=== PATIENT | female | born 1990 | race African-American/Black ===

== ENCOUNTER 2018-06-20 21:50 | Inpatient (IN) | payer OTHER ==
[~2018-06-20] VITALS: Ht 172.7 cm; Wt 103.9 kg
[~2018-06-20 21:50] MED LIST: ACET-704 PO; PROM25TA10 PO; SULF1TAB24 PO
[2018-06-20] MEDS ORDERED: ACETAMINOPHEN 325 MG TABLET. PO PRN (22:00)
[2018-06-20] MEDS ORDERED: IV RINGERS,LACTATED 1000ML 1,000 ML IV SCH (22:00)
[2018-06-20 22:13] LABS: BILIRUBIN,URINE NEGATIVE (NEG); CLARITY,URINE CLEAR; COLOR,URINE YELLOW; NITRITE,URINE NEGATIVE (NEG); PROTEIN,URINE NEGATIVE (NEG-TRACE); UROBILINOGEN,URINE 0.2 mg/dL (0.2 mg/dL)
[2018-06-20] MEDS ORDERED: 0.9 % SODIUM CHLORIDE 10 ML DISP.SYRIN. IV PRN (22:15)
[2018-06-20] MEDS ORDERED: ONDANSETRON PF 4 MG/2 ML VIAL. IV PRN (22:15)
[2018-06-20] MEDS ORDERED: TERBUTALINE 1 MG/ML VIAL. SQ PRN (22:15)
[2018-06-20] MEDS ORDERED: IBUPROFEN 400 MG TABLET. PO PRN (22:15)
[2018-06-20] MEDS ORDERED: LIDOCAINE 1% PF 30 ML VIAL. INJ PRN (22:15)
[2018-06-20] MEDS ORDERED: fentaNYL PF VIAL 100 MCG/2 ML VIAL IV PRN ×2 (22:15)
[2018-06-20] MEDS ORDERED: NALBUPHINE 10 MG/ML AMPUL. IV PRN (22:15)
[2018-06-20] MEDS ORDERED: OXYTOCIN 30 UNIT/500 ML PREMIX 500 ML IV PRN ×2 (22:15)
[2018-06-20] MEDS: IV RINGERS,LACTATED 1000ML 1,000 ML IV SCH (22:15)
[2018-06-20 22:20] LABS: BARBITURATES NEG (NEG); BENZODIAZEPINES NEG (NEG); CANNABINOIDS NEG (NEG); COCAINE NEG (NEG); METHADONE NEG (NEG); OPIATES NEG (NEG); PHENCYCLIDINE NEG (NEG)
[2018-06-20 22:26] LABS: AMPHETAMINE/METHAMPHETAMINE NEG (NEG)
[2018-06-20 22:27] LABS: BACTERIA,URINE FEW /HPF (0-FEW); RBC,URINE 0 /HPF (0-2); SQUAMOUS EPITHELIAL CELL,UR MANY /LPF; TRICHOMONAS,URINE PRESENT
[2018-06-20] MEDS ORDERED: PENICILLIN G K 5,000,000 UNIT in IV DEXTROSE 5% 100ML 100 ML IV ONE (22:30)
[2018-06-20 22:49] LABS: BASO % 0 % (0-3); EOS % 0 % (0-3); HEMATOCRIT 34.4 % (36.0-47.0); HEMOGLOBIN 11.6 g/dL (12.0-15.5); LYMPH # 2.3 x10^3/uL (1.0-4.8); LYMPH % 22 % (24-48); MEAN CORPUSCULAR HEMOGLOBIN 31 pg (25-35); MEAN CORPUSCULAR HGB CONC 34 g/dL (31-37); MEAN CORPUSCULAR VOLUME 91 fL (79-100); MONO # 0.6 x10^3/uL (0.0-1.1); MONO % 6 % (0-9); NEUT # 7.3 x10^3uL (1.8-7.7); NEUT % 72 % (31-73); PLATELET COUNT 218 x10^3/uL (140-400); RED CELL DISTRIBUTION WIDTH 13.5 % (11.5-14.5); WHITE BLOOD COUNT 10.2 x10^3/uL (4.0-11.0)
--- NOTE | 2018-06-20 23:53 | PDOC1 ---
OB - History Hx of Present Care: Good Care Ultrasounds: Normal mid trimester US Obstetrical Complications: None Medical Complications: None Other Concerns: Pt. seen in [facility] clinic at . Past Family/Social History * Past Medical, Surgical, Family and Obstetric Histories reviewed from chart. Blood Type: Unknown Rubella: Unknown RPR/VDRL: Unknown GBS Status: Unknown HBsAG: Unknown OB - Chief Complaint & HPI Date of Admission: Date of Admission: Jun 20, 2018 at 21:50 Chief Complaint/History : 2 Para: 1 EGA: 40 Reason for admission: active labor Admission Nurse Assessment Rev: Yes OB - Admission Exam Physical Exam Vitals: VS - Last 72 Hours, by Label Date Time Temp Pulse Resp B/P (MAP) Pulse Ox O2 Delivery O2 Flow Rate FiO2 06/20/18 22:34 18 Room Air HEENT: Normal Heart: Regular Rate Lungs: Clear Abdomen: Gravid, Non tender, Soft Extremities: Edema Reflexes: Normal Cervical Dilatation: 6cm Effacement: 100% Station: 0 Membranes: Intact Heart Rate: Normal Accelerations: Accelerations Present Decelerations: No decelerations Contractions on Admission: < 5 Minutes Apart Intensity: Firm Text A: 40 wks IUP care at Trichomonas GBS positive P: Admit for active labor. Start Pen G prophylaxis. Will treat Trichomonas after delivery. MARY HERMAN Jr, MD Jun 20, 2018 23:53
--- NOTE | 2018-06-20 23:55 | PDOC ---
VAGINAL DELIVERY DATE DATE: 06/20/18 TIME: 23:54 : 2 Para: 2 EGA: 40 VAGINAL DELIVERY: VTX VACCUM ASSISTED: No PLACENTA: Spontaneous 8/9 SEX: Male WEIGHT Weight [ 7 lbs. 12 oz ] Nuchal Cord: No Amniotic Fluid: Clear PAIN: Natural EPISIOTOMY: No EXTENSION: Yes (1st degree midline laceration; hemostatic) REPAIRED WITH hemostatic EBL 300 ml COMPLICATIONS none CONDITION pt. stable Signs of Intrauterine Infectio: None Shoulder Dystocia: No MARY HERMAN Jr, MD Jun 20, 2018 23:55
[2018-06-21] MEDS ORDERED: IBUPROFEN 400 MG TABLET. PO PRN
[2018-06-21 00:18] VITALS: BP 132/66
[2018-06-21] MEDS ORDERED: metroNIDAZOLE 500 MG TABLET PO ONE ×2 (01:00)
[2018-06-21] MEDS ORDERED: PENICILLIN G K 2,500,000 UNIT in IV DEXTROSE 5% 50 ML IV SCH (02:30)
[2018-06-21 05:25] VITALS: BP 132/69
[2018-06-21 05:35] LABS: BASO % 0 % (0-3); EOS % 0 % (0-3); HEMATOCRIT 31.4 % (36.0-47.0); HEMOGLOBIN 10.9 g/dL (12.0-15.5); LYMPH # 1.1 x10^3/uL (1.0-4.8); LYMPH % 9 % (24-48); MEAN CORPUSCULAR HEMOGLOBIN 32 pg (25-35); MEAN CORPUSCULAR HGB CONC 35 g/dL (31-37); MEAN CORPUSCULAR VOLUME 91 fL (79-100); MONO # 0.6 x10^3/uL (0.0-1.1); MONO % 5 % (0-9); NEUT # 10.8 x10^3uL (1.8-7.7); NEUT % 86 % (31-73); PLATELET COUNT 186 x10^3/uL (140-400); RED BLOOD COUNT 3.46 x10^6/uL (3.50-5.40); RED CELL DISTRIBUTION WIDTH 13.7 % (11.5-14.5); WHITE BLOOD COUNT 12.6 x10^3/uL (4.0-11.0)
[2018-06-21] MEDS ORDERED: 0.9 % SODIUM CHLORIDE 10 ML DISP.SYRIN. IV PRN ×2 (05:45)
[2018-06-21] MEDS ORDERED: oxyCODONE/APAP 5/325 1 TAB TABLET PO PRN ×2 (05:45)
[2018-06-21] MEDS ORDERED: DOCUSATE SODIUM 100 MG CAPSULE. PO PRN ×2 (05:45)
[2018-06-21] MEDS ORDERED: MAG HYDROX/ALUMINUM HYD/SIMETH 30 ML ORAL.SUSP PO PRN ×2 (05:45)
[2018-06-21] MEDS ORDERED: diphenhydrAMINE HCL 25 MG CAPSULE PO PRN ×2 (05:45)
[2018-06-21] MEDS ORDERED: ZOLPIDEM 5 MG TABLET. PO PRN ×2 (05:45)
[2018-06-21] MEDS ORDERED: HYDROCORTISONE 1% TOPICAL OINTMENT 30GM TUBE. TP PRN ×2 (05:45)
[2018-06-21] MEDS ORDERED: PHENYLEPH/MINERAL OIL/PETROLAT RECTAL OINTMENT 28GM TUBE. RC PRN ×2 (05:45)
[2018-06-21] MEDS ORDERED: ACETAMINOPHEN 325 MG TABLET. PO PRN ×2 (05:45)
[2018-06-21] MEDS ORDERED: BENZOCAINE 20% TOPICAL AEROSOL SPRAY 57GM CAN. TP PRN ×2 (05:45)
[2018-06-21] MEDS ORDERED: MAGNESIUM HYDROXIDE 2,400 MG/30 ML ORAL.SUSP. PO PRN ×2 (05:45)
[2018-06-21] MEDS ORDERED: MMR per PROTOCOL. MC PRN ×2 (05:45)
[2018-06-21] MEDS ORDERED: OXYTOCIN 30 UNIT/500 ML PREMIX 500 ML IV PRN ×2 (05:45)
[2018-06-21] MEDS ORDERED: SIMETHICONE 80 MG TAB.CHEW PO PRN ×2 (05:45)
[2018-06-21] MEDS: IV RINGERS,LACTATED 1000ML 1,000 ML IV SCH ×3 (06:15→22:15)
[2018-06-21 08:00] VITALS: BP 139/77
[2018-06-21] MEDS ORDERED: FERROUS SULFATE 325 MG TABLET. PO SCH (08:00)
[2018-06-21 08:01] LABS: % BANDS 8 % (0-9); % LYMPHS 7 % (24-48); % MONOS 4 % (0-10); % SEGS 81 % (35-66); PLT ESTIMATE ADEQUATE (ADEQUATE)
--- NOTE | 2018-06-21 09:52 | PDOC ---
OB Progress Note Date of Service 06/21/18 Time of Evaluation 0950 Notes PT. feeling well. No complaints. Pt. completed Flagyl treatment for Trichomonas and informed her partner. Lab Laboratory Tests Test 06/20/18 22:07 06/20/18 22:20 06/21/18 04:50 Urine Collection Type Unknown Urine Color Yellow Urine Clarity Clear Urine pH 6.0 Urine Specific [place] 1.020 Urine Protein Negative mg/dL (NEG-TRACE) Urine Glucose (UA) Negative mg/dL (NEG) Urine Ketones (Stick) Negative mg/dL (NEG) Urine Blood Trace (NEG) Urine Nitrite Negative (NEG) Urine Bilirubin Negative (NEG) Urine Urobilinogen Dipstick 0.2 mg/dL (0.2 mg/dL) Urine Leukocyte Esterase Large (NEG) Urine RBC 0 /HPF (0-2) Urine WBC 5-10 /HPF (0-4) Urine Squamous Epithelial Cells Many /LPF Urine Bacteria Few /HPF (0-FEW) Urine Trichomonas Present Urine Opiates Screen Neg (NEG) Urine Methadone Screen Neg (NEG) Urine Barbiturates Neg (NEG) Urine Phencyclidine Screen Neg (NEG) Urine Amphetamine/Methamphetamine Neg (NEG) Urine Benzodiazepines Screen Neg (NEG) Urine Cocaine Screen Neg (NEG) Urine Cannabinoids Screen Neg (NEG) Urine Ethyl Alcohol Neg (NEG) White Blood Count 10.2 x10^3/uL (4.0-11.0) 12.6 x10^3/uL (4.0-11.0) Red Blood Count 3.80 x10^6/uL (3.50-5.40) 3.46 x10^6/uL (3.50-5.40) Hemoglobin 11.6 g/dL (12.0-15.5) 10.9 g/dL (12.0-15.5) Hematocrit 34.4 % (36.0-47.0) 31.4 % (36.0-47.0) Mean Corpuscular Volume 91 fL (79-100) 91 fL (79-100) Mean Corpuscular Hemoglobin 31 pg (25-35) 32 pg (25-35) Mean Corpuscular Hemoglobin Concent 34 g/dL (31-37) 35 g/dL (31-37) Red Cell Distribution Width 13.5 % (11.5-14.5) 13.7 % (11.5-14.5) Platelet Count 218 x10^3/uL (140-400) 186 x10^3/uL (140-400) Neutrophils (%) (Auto) 72 % (31-73) 86 % (31-73) Lymphocytes (%) (Auto) 22 % (24-48) 9 % (24-48) Monocytes (%) (Auto) 6 % (0-9) 5 % (0-9) Eosinophils (%) (Auto) 0 % (0-3) 0 % (0-3) Basophils (%) (Auto) 0 % (0-3) 0 % (0-3) Neutrophils # (Auto) 7.3 x10^3uL (1.8-7.7) 10.8 x10^3uL (1.8-7.7) Lymphocytes # (Auto) 2.3 x10^3/uL (1.0-4.8) 1.1 x10^3/uL (1.0-4.8) Monocytes # (Auto) 0.6 x10^3/uL (0.0-1.1) 0.6 x10^3/uL (0.0-1.1) Eosinophils # (Auto) 0.0 x10^3/uL (0.0-0.7) 0.0 x10^3/uL (0.0-0.7) Basophils # (Auto) 0.0 x10^3/uL (0.0-0.2) 0.0 x10^3/uL (0.0-0.2) Treponema pallidum Antibody Nonreactive (Nonreactive) Segmented Neutrophils % 81 % (35-66) Band Neutrophils % 8 % (0-9) Lymphocytes % 7 % (24-48) Monocytes % 4 % (0-10) Platelet Estimate Adequate (ADEQUATE) Laboratory Tests Test 06/20/18 22:07 06/20/18 22:20 06/21/18 04:50 Urine Collection Type Unknown Urine Color Yellow Urine Clarity Clear Urine pH 6.0 Urine Specific [place] 1.020 Urine Protein Negative mg/dL (NEG-TRACE) Urine Glucose (UA) Negative mg/dL (NEG) Urine Ketones (Stick) Negative mg/dL (NEG) Urine Blood Trace (NEG) Urine Nitrite Negative (NEG) Urine Bilirubin Negative (NEG) Urine Urobilinogen Dipstick 0.2 mg/dL (0.2 mg/dL) Urine Leukocyte Esterase Large (NEG) Urine RBC 0 /HPF (0-2) Urine WBC 5-10 /HPF (0-4) Urine Squamous Epithelial Cells Many /LPF Urine Bacteria Few /HPF (0-FEW) Urine Trichomonas Present Urine Opiates Screen Neg (NEG) Urine Methadone Screen Neg (NEG) Urine Barbiturates Neg (NEG) Urine Phencyclidine Screen Neg (NEG) Urine Amphetamine/Methamphetamine Neg (NEG) Urine Benzodiazepines Screen Neg (NEG) Urine Cocaine Screen Neg (NEG) Urine Cannabinoids Screen Neg (NEG) Urine Ethyl Alcohol Neg (NEG) White Blood Count 10.2 x10^3/uL (4.0-11.0) 12.6 x10^3/uL (4.0-11.0) Red Blood Count 3.80 x10^6/uL (3.50-5.40) 3.46 x10^6/uL (3.50-5.40) Hemoglobin 11.6 g/dL (12.0-15.5) 10.9 g/dL (12.0-15.5) Hematocrit 34.4 % (36.0-47.0) 31.4 % (36.0-47.0) Mean Corpuscular Volume 91 fL (79-100) 91 fL (79-100) Mean Corpuscular Hemoglobin 31 pg (25-35) 32 pg (25-35) Mean Corpuscular Hemoglobin Concent 34 g/dL (31-37) 35 g/dL (31-37) Red Cell Distribution Width 13.5 % (11.5-14.5) 13.7 % (11.5-14.5) Platelet Count 218 x10^3/uL (140-400) 186 x10^3/uL (140-400) Neutrophils (%) (Auto) 72 % (31-73) 86 % (31-73) Lymphocytes (%) (Auto) 22 % (24-48) 9 % (24-48) Monocytes (%) (Auto) 6 % (0-9) 5 % (0-9) Eosinophils (%) (Auto) 0 % (0-3) 0 % (0-3) Basophils (%) (Auto) 0 % (0-3) 0 % (0-3) Neutrophils # (Auto) 7.3 x10^3uL (1.8-7.7) 10.8 x10^3uL (1.8-7.7) Lymphocytes # (Auto) 2.3 x10^3/uL (1.0-4.8) 1.1 x10^3/uL (1.0-4.8) Monocytes # (Auto) 0.6 x10^3/uL (0.0-1.1) 0.6 x10^3/uL (0.0-1.1) Eosinophils # (Auto) 0.0 x10^3/uL (0.0-0.7) 0.0 x10^3/uL (0.0-0.7) Basophils # (Auto) 0.0 x10^3/uL (0.0-0.2) 0.0 x10^3/uL (0.0-0.2) Treponema pallidum Antibody Nonreactive (Nonreactive) Segmented Neutrophils % 81 % (35-66) Band Neutrophils % 8 % (0-9) Lymphocytes % 7 % (24-48) Monocytes % 4 % (0-10) Platelet Estimate Adequate (ADEQUATE) Medications Current Medications Ringer's Solution 1,000 ml @ 125 mls/hr Q8H IV ; Start 06/20/18 at 22:00; Stop 06/21/18 at 06:36; Status DC Acetaminophen (Tylenol) 1,000 mg PRN Q6HRS PRN PO PAIN, TEMP > 100.5'F; Start 06/20/18 at 22:00 Sodium Chloride (Normal Saline Flush) 3 ml QSHIFT PRN IV AFTER MEDS AND BLOOD DRAWS; Start 06/20/18 at 22:15 Ringer's Solution 1,000 ml @ 125 mls/hr Q8H IV ; Start 06/20/18 at 22:15 Nalbuphine HCl (Nubain) 10 mg PRN Q1HR PRN IV Severe labor pain Last administered on 06/20/18at 22:34; Start 06/20/18 at 22:15 Fentanyl Citrate (Fentanyl 2ml Vial) 50 mcg PRN Q30MIN PRN IV Mild to moderate pain; Start 06/20/18 at 22:15 Fentanyl Citrate (Fentanyl 2ml Vial) 100 mcg PRN Q30MIN PRN IV Severe pain; Start 06/20/18 at 22:15 Ondansetron HCl (Zofran) 4 mg PRN Q4HRS PRN IV NAUSEA/VOMITING; Start 06/20/18 at 22:15 Terbutaline Sulfate (Brethine) 0.25 mg 1X PRN PRN SQ SEE COMMENTS; Start at 22:15; Stop 06/21/18 at 06:36; Status DC Lidocaine HCl (Xylocaine 1% Pf 30ml Vial) 30 ml 1X PRN PRN INJ SEE COMMENTS; Start 06/20/18 at 22:15; Stop 06/21/18 at 06:36; Status DC Oxytocin/Sodium Chloride 500 ml @ 0 mls/hr CONT PRN IV SEE I/O RECORD; Start at 22:15; Stop 06/21/18 at 06:36; Status DC Oxytocin/Sodium Chloride 500 ml @ 0 mls/hr CONT PRN PRN IV Post delivery bleeding Last administered on 06/20/18at 23:45; Start 06/20/18 at 22:15 Ibuprofen (Motrin) 800 mg PRN Q6HRS PRN PO PAIN; Start 06/20/18 at 22:15; Stop 06/21/18 at 06:36; Status DC Penicillin G Potassium [id number] unit/Dextrose 100 ml @ 100 mls/hr 1X ONCE IV Last administered on 06/20/18at 22:33; Start 06/20/18 at 22:30; Stop 06/20/18 at 23:29; Status DC Penicillin G Potassium [id number] unit/Dextrose 50 ml @ 100 mls/hr Q4H IV ; Start 06/21/18 at 02:30; Stop 06/21/18 at 04:22; Status DC Sodium Chloride (Normal Saline Flush) 10 ml QSHIFT PRN IV AFTER MEDS AND BLOOD DRAWS; Start 06/21/18 at 00:00; Stop 06/21/18 at 06:37; Status DC Oxytocin/Sodium Chloride 500 ml @ 62.5 mls/hr CONT PRN IV SEE I/O RECORD; Start 06/21/18 at 00:00; Stop 06/21/18 at 06:37; Status DC Acetaminophen (Tylenol) 650 mg PRN Q6HRS PRN PO MILD PAIN / TEMP; Start at 00:00; Stop 06/21/18 at 06:37; Status DC Ibuprofen (Motrin) 800 mg PRN Q8HRS PRN PO INFLAMMATION/PAIN PREVENTION Last administered on 06/21/18at 02:00; Start 06/21/18 at 00:00; Stop 06/21/18 at 06:37 ; Status DC Docusate Sodium (Colace) 100 mg PRN BID PRN PO CONSTIPATION; Start 06/21/18 at 00:00; Stop 06/21/18 at 06:37; Status DC Magnesium Hydroxide (Milk Of Magnesia) 2,400 mg PRN DAILY PRN PO CONSTIPATION; Start 06/21/18 at 00:00; Stop 06/21/18 at 06:37; Status DC Al Hydroxide/Mg Hydroxide (Mylanta Plus Xs) 30 ml PRN Q4HRS PRN PO HEARTBURN / GAS; Start 06/21/18 at 00:00; Stop 06/21/18 at 06:37; Status DC Simethicone (Gas-X) 80 mg PRN AFTMEALHC PRN PO GAS / BLOATING; Start 06/21/18 at 00:00; Stop 06/21/18 at 06:37; Status DC Diphenhydramine HCl (Benadryl) 25 mg PRN Q6HRS PRN PO ITCHING; Start 06/21/18 at 00:00; Stop 06/21/18 at 06:38; Status DC Benzocaine (Americaine) 1 spray PRN QID PRN TP TOPICAL PAIN; Start 06/21/18 at 00:00; Stop 06/21/18 at 06:38; Status DC Phenyleph/Shark Oil/Min Oil/Petrol (Preparation H) 1 cheri PRN QID PRN RC RECTAL PAIN; Start 06/21/18 at 00:00; Stop 06/21/18 at 06:38; Status DC Hydrocortisone (Cortaid) 1 cheri PRN QID PRN TP PERINEAL PAIN; Start 06/21/18 at 00:00; Stop 06/21/18 at 06:38; Status DC Ferrous Sulfate (Feosol) 325 mg BIDWMEALS PO ; Start 06/21/18 at 08:00; Stop at 08:00; Status DC Zolpidem Tartrate (Ambien) 5 mg PRN QHS PRN PO INSOMNIA, MAY REPEAT X1; Start 06/21/18 at 00:00; Stop 06/21/18 at 06:33; Status DC Info (Do NOT chart on this placeholder) 1 ea 1X PRN PRN MC SEE COMMENTS; Start 06/21/18 at 00:00; Stop 06/21/18 at 06:38; Status DC Info (Do NOT chart on this placeholder) 1 ea 1X PRN PRN MC SEE COMMENTS; Start 06/21/18 at 00:00; Stop 06/21/18 at 06:38; Status DC Oxycodone/ Acetaminophen (Percocet 5/325) 2 tab PRN Q4HRS PRN PO MODERATE PAIN , SEVERE PAIN; Start 06/21/18 at 00:00; Stop 06/21/18 at 06:38; Status DC Metronidazole (Flagyl) 500 mg 1X ONCE PO Last administered on 06/21/18at 02:00 ; Start 06/21/18 at 00:00; Stop 06/21/18 at 00:14; Status DC Metronidazole (Flagyl) 2,000 mg 1X ONCE PO ; Start 06/21/18 at 01:00; Stop at 01:01; Status DC Sodium Chloride (Normal Saline Flush) 10 ml QSHIFT PRN IV AFTER MEDS AND BLOOD DRAWS; Start 06/21/18 at 05:45 Oxytocin/Sodium Chloride 500 ml @ 62.5 mls/hr CONT PRN IV SEE I/O RECORD; Start 06/21/18 at 05:45; Stop 06/21/18 at 13:44 Acetaminophen (Tylenol) 650 mg PRN Q6HRS PRN PO MILD PAIN / TEMP; Start at 05:45 Ibuprofen (Motrin) 800 mg PRN Q8HRS PRN PO INFLAMMATION/PAIN PREVENTION; Start 06/21/18 at 05:45 Docusate Sodium (Colace) 100 mg PRN BID PRN PO CONSTIPATION; Start 06/21/18 at 05:45 Magnesium Hydroxide (Milk Of Magnesia) 2,400 mg PRN DAILY PRN PO CONSTIPATION; Start 06/21/18 at 05:45 Al Hydroxide/Mg Hydroxide (Mylanta Plus Xs) 30 ml PRN Q4HRS PRN PO HEARTBURN / GAS; Start 06/21/18 at 05:45 Simethicone (Gas-X) 80 mg PRN AFTMEALHC PRN PO GAS / BLOATING; Start 06/21/18 at 05:45 Diphenhydramine HCl (Benadryl) 25 mg PRN Q6HRS PRN PO ITCHING; Start 06/21/18 at 05:45 Benzocaine (Americaine) 1 spray PRN QID PRN TP TOPICAL PAIN; Start 06/21/18 at 05:45 Phenyleph/Shark Oil/Min Oil/Petrol (Preparation H) 1 cheri PRN QID PRN RC RECTAL PAIN; Start 06/21/18 at 05:45 Hydrocortisone (Cortaid) 1 cheri PRN QID PRN TP PERINEAL PAIN; Start 06/21/18 at 05:45 Ferrous Sulfate (Feosol) 325 mg BIDWMEALS PO ; Start 06/22/18 at 08:00 Zolpidem Tartrate (Ambien) 5 mg PRN QHS PRN PO INSOMNIA, MAY REPEAT X1; Start 06/21/18 at 05:45 Info (Do NOT chart on this placeholder) 1 ea 1X PRN PRN MC SEE COMMENTS; Start 06/21/18 at 05:45 Info (Do NOT chart on this placeholder) 1 ea 1X PRN PRN MC SEE COMMENTS; Start 06/21/18 at 05:45 Oxycodone/ Acetaminophen (Percocet 5/325) 2 tab PRN Q4HRS PRN PO MODERATE PAIN , SEVERE PAIN; Start 06/21/18 at 05:45 Active Scripts Active Promethazine Hcl 25 Mg Tablet 1 Tab PO PRN Q6HRS Tylenol With Codeine #3 Tablet (Acetaminophen/Codeine Phosphate) 1 Each Tablet 1 Tab PO Q8HRS PRN Bactrim Ds Tablet (Sulfamethoxazole/Trimethoprim) 1 Each Tablet 1 Tab PO BID Exam Abd: soft, non tender, fundus firm Assessment PPD#1 s/p Plan of Care: Continue current Gael, MARY Morrison Jr, MD Jun 21, 2018 09:52
[2018-06-21 12:15] VITALS: BP 122/64
[2018-06-21] MEDS: IBUPROFEN 400 MG TABLET. PO PRN ×2 (12:28→21:39)
--- NOTE | 2018-06-21 16:20 | NUR ---
called arnel leone rn and she stated she did give 4 flagyl pills and not just one
[2018-06-21 16:40] VITALS: BP 115/73
[2018-06-21 20:52] VITALS: BP 113/66
[2018-06-22 05:35] VITALS: BP 111/78
[2018-06-22] MEDS: IBUPROFEN 400 MG TABLET. PO PRN ×2 (07:46→17:59)
[2018-06-22] MEDS ORDERED: FERROUS SULFATE 325 MG TABLET. PO SCH (08:00)
[2018-06-22 08:10] LABS: BASO % 0 % (0-3); EOS # 0.1 x10^3/uL (0.0-0.7); EOS % 1 % (0-3); HEMATOCRIT 29.8 % (36.0-47.0); HEMOGLOBIN 10.1 g/dL (12.0-15.5); LYMPH # 2.2 x10^3/uL (1.0-4.8); LYMPH % 28 % (24-48); MEAN CORPUSCULAR HEMOGLOBIN 31 pg (25-35); MEAN CORPUSCULAR HGB CONC 34 g/dL (31-37); MEAN CORPUSCULAR VOLUME 92 fL (79-100); MONO # 0.4 x10^3/uL (0.0-1.1); MONO % 6 % (0-9); NEUT % 65 % (31-73); PLATELET COUNT 184 x10^3/uL (140-400); RED BLOOD COUNT 3.25 x10^6/uL (3.50-5.40); RED CELL DISTRIBUTION WIDTH 13.8 % (11.5-14.5); WHITE BLOOD COUNT 7.8 x10^3/uL (4.0-11.0)
--- NOTE | 2018-06-22 09:48 | PDOC3 ---
OB DISCHARGE SUMMARY DATE OF ADMISSION: 06/20/18 DATE OF DISCHARGE: 06/22/18 REASON FOR ADMISSION: Onset of labor INTRAPARTUM PROCEDURES: Spontanous Vag Deliv DISCHARGE DIAGNOSIS: Term Delivered DISCHARGE INFORMATION: Activity (ad eula), Diet (regular), Instructions (pelvic rest x 6 wks) HOSPITAL COURSE Term gestation delivered vaginally. MARY HERMAN Jr, MD Jun 22, 2018 09:48
[2018-06-22] MEDS ORDERED: IBUP-1027 PO (09:49)
--- NOTE | 2018-06-22 09:51 | DISCH ---
DISCHARGE INSTRUCTIONS Condition on Discharge Condition on Discharge: Stable Activity After Discharge Activity Instructions for Disc: Resume previous activity Lifting Instructions after Dis: No heavy lifting Driving Instructions after Dis: Do not drive today Diet after Discharge Diet after Discharge: Regular Contacting the DRWilbur after DC Call your doctor for: If your condition worsens Follow-Up Follow up with: Dr. Molina in 6 wks. MARY MOLINA Jr, MD Jun 22, 2018 09:51
[2018-06-22 11:20] VITALS: BP 114/68
--- NOTE | 2018-06-22 14:29 | NUR ---
SS following up with referral regarding "meconium positiive for cannabinoids; PNC done at ." SS met with infants mother to assess the circumstances surrounding the referral. As observed, infants mother was bonding well with infant in room. Infants mother reported that she did smoke Marijuana during up until March due to severe pain during . Infants mother reported that she has good family support at home. She reported that she lives with infants father, her six year old daughter, and family. She reported that she works at [employer] in [place]. She reported that she has active Medicaid and WIC. Mother reported that she will use similac and breast milk for and wants infant to see Dr. Anrdews Quick for primary care. Mother reported having all needed infant supplies to include diapers, wipes, and a car seat. Infants mother denied any history of behavioral health or other substance use. Per chart mother's UDS was negative at admission. SS provided infants mother with resources for [facility] and the TIES program through [facility]. Mother accepted resources. No other issues or concerns noted during visit. [facility] hotline report made for positive meconium, intake# [id number]. RN notified.
[2018-06-22 18:02] VITALS: BP 114/72
== END 2018-06-22 18:09 | disposition home or self-care (01) | DRG 806 ==
LOC: OBSVTOIN 21:50 → 3 SO LND 21:50
PROVIDERS: ADMIT Obstetrics & Gynecology; ATTEND Obstetrics & Gynecology
PROC: 10E0XZZ Delivery of Products of Conception, External Approach (ICD-10-PCS; principal; 2018-06-20)
PROC: 0HQ9XZZ Repair Perineum Skin, External Approach (ICD-10-PCS; 2018-06-20)
DX: O99.824 Streptococcus B carrier state complicating childbirth (principal); R71.0 Precipitous drop in hematocrit; Z37.0 Single live birth; O75.3 Other infection during labor; Z3A.40 40 weeks gestation of pregnancy; O70.0 First degree perineal laceration during delivery; A59.9 Trichomoniasis, unspecified
CPT/HCPCS: 36415; 80307; 81001; 85007; 85025; 86592; 86850; 86900; 86901; 87086; G0378; J2300; J2540; J2590

== ENCOUNTER 2018-09-04 14:12 | Emergency (ER) | payer SELFPAY ==
[~2018-09-04] VITALS: Ht 167.6 cm; Wt 95.3 kg
[~2018-09-04 14:12] MED LIST changes: +IBUP-1027 PO
[2018-09-04 15:30] VITALS: BP 132/90
[2018-09-04] MEDS ORDERED: NAPROXEN 500 MG TABLET PO STA (15:31)
--- NOTE | 2018-09-04 15:42 | PHYS DOC ---
Past Medical History Past Medical History: No Pertinent History Past Surgical History: No Surgical History Alcohol Use: None Drug Use: Marijuana Adult General Chief Complaint Chief Complaint: FOOT INJURY PAIN HPI HPI Patient is a 27 year old female who presents to the ED today complaining of a sharp intermittent moderate pain on the left foot and left ankle that began yesterday after she fell. Patient denies any loss of consciousness when she fell. Denies hitting her head on the ground. She states her pain is worse on weight-bearing especially ambulation. She states immobilization relieves some of the pain. Review of Systems Review of Systems Constitutional: Denies fever or chills [] Musculoskeletal: Reports left foot and left ankle pain Integument: Denies rash or skin lesions [] Neurologic: Denies headache, focal weakness or sensory changes [] All other systems were reviewed and found to be within normal limits, except as documented in this note. Current Medications Current Medications Current Medications Medications (Trade) Dose Ordered Sig/Barbara Start Time Stop Time Status Last Admin Dose Admin Acetaminophen/ Hydrocodone Bitart (Lortab 5/325) 1 tab 1X ONCE 09/04/18 15:45 09/04/18 15:46 DC 09/04/18 15:40 1 TAB Naproxen (Naprosyn) 500 mg 1X STAT 09/04/18 15:31 09/04/18 15:33 DC 09/04/18 15:40 500 MG Allergies Allergies Allergies Coded Allergies Type Severity Reaction Last Updated Verified No Known Drug Allergies 08/30/15 No Physical Exam Physical Exam Constitutional: Well developed, well nourished, no acute distress, non-toxic appearance. [] Skin: Warm, dry, no erythema, no rash. [] Back: No tenderness, no CVA tenderness. [] Extremities: Left foot with mild soft tissue swelling noted on top of the foot. Tenderness on palpation of the toe of the left foot as well as lateral aspect of the foot and ankle. No navicular bone tenderness slight tenderness of the base of the fifth metatarsal of the left foot. Full range of motion to the left foot and toes. +2 left pedal pulse. Cap refill less than 2 seconds the Neurologic: Alert and oriented X 3, normal motor function, normal sensory function, no focal deficits noted. [] Psychologic: Affect normal, judgement normal, mood normal. [] Current Patient Data Vital Signs Vital Signs Date Time Temp Pulse Resp B/P (MAP) Pulse Ox O2 Delivery O2 Flow Rate FiO2 09/04/18 15:40 20 98 09/04/18 15:30 98.5 82 132/90 (104) Room Air 98.5 EKG EKG [] Radiology/Procedures Radiology/Procedures []PROCEDURE: FOOT LEFT 3V Indications: Fall and pain. Three-view left ankle study: No acute fracture or dislocation or lytic process is seen. The mortise ankle joint is intact. Three-view left foot study: No acute fracture or dislocation or lytic process is seen. No plantar spur of the calcaneus is seen. IMPRESSION: No acute fracture. Electronically signed by: Anupama Mcguire MD (09/04/2018 4:38 PM) [facility] DICTATED and SIGNED BY: ANUPAMA MCGUIRE MD DATE: 09/04/18 8998 Course & Med Decision Making Course & Med Decision Making Pertinent Labs and Imaging studies reviewed. (See chart for details) This is a 27-year-old female patient who presents to the ED today with left foot and left ankle pain that began last night after falling. Left foot and left ankle x-rays interpreted by radiologist are negative for any acute findings. Patient was discharged to home. Ice elevation encouraged. OTC pain relievers. Follow-up with orthopedic doctor in 1-2 weeks. Dragon Disclaimer Dragon Disclaimer This electronic medical record was generated, in whole or in part, using a voice recognition dictation system. Departure Departure Impression: Primary Impression: Left ankle sprain Additional Impressions: Sprain of left foot Fall Disposition: HOME, SELF-CARE Condition: STABLE Referrals: NO PCP (PCP) RADHA ALVARADO II, MD follow up in 1-2 weeks Patient Instructions: Ankle Sprain, Foot Sprain Additional Instructions: You were seen for left foot and left ankle sprain. Your x-rays were negative for any acute findings. Try to ice and elevate the extremity. Take [id number] pain relievers especially anti-inflammatories as needed for pain. Follow-up with your own primary care doctor orthopedic doctor or the provided orthopedic doctor in 1-2 weeks. Problem Qualifiers Primary Impression: Left ankle sprain Encounter type: initial encounter Involved ligament of ankle: unspecified ligament Qualified Codes: S93.402A - Sprain of unspecified ligament of left ankle, initial encounter Additional Impressions: Sprain of left foot Encounter type: initial encounter Qualified Codes: S93.602A - Unspecified sprain of left foot, initial encounter Fall Encounter type: initial encounter Qualified Codes: W19.XXXA - Unspecified fall, initial encounter COLETTE GARCÍA APRN Sep 04, 2018 15:42
[2018-09-04] MEDS ORDERED: HYDROcodone/APAP 5/325MG 1 TAB TABLET PO ONE (15:45)
--- NOTE | 2018-09-04 16:41 | RAD ---
Indications: Fall and pain. Three-view left ankle study: No acute fracture or dislocation or lytic process is seen. The mortise ankle joint is intact. Three-view left foot study: No acute fracture or dislocation or lytic process is seen. No plantar spur of the calcaneus is seen. IMPRESSION: No acute fracture. Electronically signed by: Iam Mcguire MD (09/04/2018 4:38 PM) [id number]
--- NOTE | 2018-09-04 16:41 | RAD ---
Indications: Fall and pain. Three-view left ankle study: No acute fracture or dislocation or lytic process is seen. The mortise ankle joint is intact. Three-view left foot study: No acute fracture or dislocation or lytic process is seen. No plantar spur of the calcaneus is seen. IMPRESSION: No acute fracture. Electronically signed by: Iam Mcguire MD (09/04/2018 4:38 PM) [id number]
== END 2018-09-04 17:30 | disposition home or self-care (01) ==
LOC: ER 14:12
DX: S93.492A Sprain of other ligament of left ankle, initial encounter (principal); S93.692A Other sprain of left foot, initial encounter; W19.XXXA Unspecified fall, initial encounter; Y93.89 Activity, other specified; Y92.89 Other specified places as the place of occurrence of the external cause; Y99.8 Other external cause status
CPT/HCPCS: 73610; 73630; 99284